=== PATIENT | female | born 1990 | race Caucasian/White ===

== ENCOUNTER 2016-10-24 04:39 | Emergency (ER) | payer OTHER ==
[2016-10-24 05:12] VITALS: TEMP 98.3; BMI 23.0
[2016-10-24] MEDS ORDERED: morphine CARPU-JECT 4 MG/1 ML DISP.SYRIN IVPUSH ONE (05:25)
[2016-10-24] MEDS ORDERED: SODIUM CHLORIDE 1,000 ML IV STA (05:25)
[2016-10-24] MEDS ORDERED: ONDANSETRON 4 MG/2 ML VIAL IVPB ONE (05:25)
--- NOTE | 2016-10-24 05:29 | PDOC ---
[id number] ABDOMINAL PAIN Time Seen by Provider: 10/24/16 04:51 History Source: Patient Exam Limitations: No Limitations - History of Present Illness Travel History: No Initial Comments: 10/24/16 05:28 25yo Female patient presents to ED c/o abdominal pain. Patient reports 1 week ago Wednesday experiencing abd cramping with burning on urination. Patient states she used over OTC AZO with relief from symptoms, she then went on vacation w/ no symptoms. [facility] and given Diflucan. She states symptoms returned and she took an old prescription of Amox. Patient now c/o RLQ, pelvic pain, bloating, nausea , diarrhea, back pain, fatigued, burping, frequency, urgency with 9/10 pain severity. Denies any other complaints at this time. Timing/Duration: reports: constant, getting worse Quality: reports: severe, sharpness Abdominal Pain Onset Location: reports: RLQ, other (Pelvic) Pain Radiation: reports: back Activities at Onset: reports: none Treatment Prior to Arrive: worse with: analgesics, antacids, cold pack, heat, laxative, enema, other Aggravating Factors: worse with: None, Defecation, Eating, Emotional upset, Exertion, [place], Movement, Voiding, Change in position Alleviating Factors: worse with: None, Belching, Shallow Breathing, Defecation, Eating, Holding Breath, Passing Gas, Change in Position, Rest, Voiding, Vomiting Past History - Travel Traveled outside of the country in the last 30 days: No Close contact w/someone who was outside of country & ill: No - Past Medical History Allergies/Adverse Reactions: Allergies Allergy/AdvReac Type Severity Reaction Status Date / Time No Known Allergies Allergy Verified 10/24/16 05:12 Home Medications: Ambulatory Orders Naproxen [Naprosyn -] 500 mg PO BID PRN #14 tablet 04/14/14 Sertraline HCl [Zoloft -] 25 mg PO DAILY 04/14/14 Ibuprofen [Motrin -] 800 mg PO Q6H #30 tablet 10/24/16 Nitrofurantoin Monohyd/M-Cryst [Macrobid -] 100 mg PO BID #14 capsule 10/24/16 - Reproductive History (#): 0 Para: 0 - Immunization History Immunization Up to Date: Yes - Psycho/Social/Smoking Cessation Hx Anxiety: Yes Suicidal Ideation: No Smoking Status: Yes Smoking History: Never smoked Have you smoked in the past 12 months: No Number of Cigarettes Smoked Daily: 1 Hx Alcohol Use: No Drug/Substance Use Hx: No Abd/GI Specific PMHX - Complaint Specific PMHX Colitis: No Diverticulitis: No Gall Bladder Disease: No GERD: No Hepatitis: No Irritable Bowel Synd (IBS): No Pancreatitis: No GI Ulcer Disease: No Review of Systems - Review of Systems Able to Perform ROS?: Yes Is the patient limited Mauritian proficient: No Constitutional: No: Chills, Fever HEENTM: No: Blurred Vision, Double Vision Respiratory: No: Cough, Shortness of Breath, Stridor, Wheezing Cardiac (ROS): No: Chest Pain, Edema, Palpitations, Syncope, Chest Tightness ABD/GI: Yes: Diarrhea, Nausea, Other (Pelvic Pain). No: Constipated, Poor Appetite, Poor Fluid Intake, Vomiting : Yes: Burning, Dysuria, Frequency, Hematuria, Pain, Urgency. No: Discharge, Flank Pain Musculoskeletal: Yes: Back Pain. No: Muscle Pain, Muscle Weakness, Neck Pain Integumentary: No: Dryness, Erythema, Rash Neurological: No: Headache, Seizure, Dizziness Psychiatric: No: Anxiety, Depression All Other Systems: Reviewed and Negative *Physical Exam - Vital Signs Last Vital Signs Temp Pulse Resp BP Pulse Ox 98.3 F 79 18 110/83 100 10/24/16 05:10 10/24/16 05:10 10/24/16 05:10 10/24/16 05:10/24/16 05:10 - Physical Exam General Appearance: Yes: Nourished, Appropriately Dressed, Moderate Distress. No: Apparent Distress, Mild Distress, Severe Distress HEENT: positive: EOMI, JOLIE, Normal ENT Inspection, Normal Voice, Symmetrical, TMs Normal, Pharynx Normal. negative: Pharyngeal Erythema, Nasal Congestion, Rhinorrhea, TM Bulging, TM Dull, TM Erythema Neck: positive: Trachea midline, Normal Thyroid, Supple. negative: Tender, Rigid, Decreased range of motion, Lymphadenopathy (R), Lymphadenopathy (L) Respiratory/Chest: positive: Lungs Clear, Normal Breath Sounds. negative: Respiratory Distress, Accessory Muscle Use, Labored Respiration, Decreased Breath Sounds, Rhonchi, Stridor, Wheezing, Hyperresonant Cardiovascular: positive: Regular Rhythm, Regular Rate. negative: Edema, JVD Gastrointestinal/Abdominal: positive: Tender, Flat, Soft, Increased Bowel Sounds. negative: Distended, Guarding, Rebound, Tenderness, Hernia Lymphatic: negative: Adenopathy Musculoskeletal: positive: Normal Inspection. negative: CVA Tenderness Extremity: positive: Normal Capillary Refill, Normal Inspection, Normal Range of Motion, Pelvis Stable. negative: Cyanosis, Erythema Integumentary: positive: Normal Color, Dry, Warm ED Treatment Course - LABORATORY CBC & Chemistry Diagram: 10/24/16 05:45 10/24/16 05:45 - RADIOLOGY Radiology Studies Ordered: Category Date Time Status ABDOMEN FLAT & UPRIGHT [RAD] Stat Radiology 10/24/16 05:23 Ordered *DC/Admit/Observation/Transfer Diagnosis at time of Disposition: Pelvic pain, Dysuria - Discharge Dispostion Disposition: HOME Condition at time of disposition: Improved Admit: No - Prescriptions Prescriptions: Nitrofurantoin Monohyd/M-Cryst [Macrobid -] 100 mg PO BID #14 capsule Ibuprofen [Motrin -] 800 mg PO Q6H #30 tablet - Referrals Referrals: Dottie Roland [Primary Care Provider] - - Patient Instructions Printed Discharge Instructions: Urinary Tract Infection Additional Instructions: Take medications as directed and if symptoms persist, please follow up with your PMD Print Language: AZERI
[2016-10-24] MEDS ORDERED: ONDANSETRON 4 MG/2 ML VIAL ONE (05:31)
[2016-10-24] MEDS ORDERED: morphine CARPU-JECT 4 MG/1 ML DISP.SYRIN ONE (05:31)
[2016-10-24 05:56] LABS: URINE APPEARANCE SLCLOUDY; URINE BILIRUBIN NEGATIVE (NEGATIVE); URINE BLOOD NEGATIVE (NEGATIVE); URINE COLOR YELLOW; URINE GLUCOSE (UA) NEGATIVE (NEGATIVE); URINE KETONE 1+ (NEGATIVE); URINE LEUK ESTERASE NEGATIVE (NEGATIVE); URINE NITRITE NEGATIVE (NEGATIVE); URINE PROTEIN NEGATIVE (NEGATIVE); URINE UROBILINOGEN NEGATIVE E.U./dl (0.2-1.0)
[2016-10-24 06:32] LABS: MCH 31.3 pg (25.7-33.7); MCHC 34.2 g/dl (32.0-36.0); MEAN CELL VOLUME 91.3 fl (80-96); MEAN PLT VOLUME 8.1 fl (7.5-11.1); PLATELET COUNT 302 K/MM3 (134-434); WHITE BLOOD COUNT 9.5 K/mm3 (4.0-10.0)
--- NOTE | 2016-10-24 07:19 | PDOC ---
History of Present Illness - General Chief Complaint: Pain Stated Complaint: ABDOMINAL PAIN Time Seen by Provider: 10/24/16 04:51 History Source: Patient - History of Present Illness Timing/Duration: reports: constant Abdominal Pain Onset Location: reports: other (lower abd) Past History - Past Medical History Allergies/Adverse Reactions: Allergies Allergy/AdvReac Type Severity Reaction Status Date / Time No Known Allergies Allergy Verified 10/24/16 05:12 Home Medications: Ambulatory Orders Naproxen [Naprosyn -] 500 mg PO BID PRN #14 tablet 04/14/14 Sertraline HCl [Zoloft -] 25 mg PO DAILY 04/14/14 Ibuprofen [Motrin -] 800 mg PO Q6H #30 tablet 10/24/16 Nitrofurantoin Monohyd/M-Cryst [Macrobid -] 100 mg PO BID #14 capsule 10/24/16 - Reproductive History (#): 0 Para: 0 - Immunization History Immunization Up to Date: Yes - Psycho/Social/Smoking Cessation Hx Anxiety: Yes Suicidal Ideation: No Smoking Status: Yes Smoking History: Never smoked Have you smoked in the past 12 months: No Number of Cigarettes Smoked Daily: 1 Hx Alcohol Use: No Drug/Substance Use Hx: No Abd/GI Specific PMHX - Complaint Specific PMHX Colitis: No Diverticulitis: No Gall Bladder Disease: No GERD: No Hepatitis: No Irritable Bowel Synd (IBS): No Pancreatitis: No GI Ulcer Disease: No Review of Systems - Review of Systems Is the patient limited Bruneian proficient: No *Physical Exam - Vital Signs Last Vital Signs Temp Pulse Resp BP Pulse Ox 98.3 F 79 18 110/83 100 10/24/16 05:10 10/24/16 05:10 10/24/16 05:10 10/24/16 05:10 10/24/16 05:10 - Physical Exam General Appearance: Yes: Appropriately Dressed. No: Apparent Distress HEENT: positive: Normal Voice Neck: positive: Supple Respiratory/Chest: negative: Respiratory Distress Female Pelvic Exam: positive: normal external exam, normal adnexa. negative: CMT, discharge, lesions, vaginal bleeding Gastrointestinal/Abdominal: positive: Soft, Other (poorly localized tenderness ) Musculoskeletal: negative: CVA Tenderness Integumentary: positive: Dry, Warm Neurologic: positive: Fully Oriented, Alert, Normal Mood/Affect ED Treatment Course - LABORATORY CBC & Chemistry Diagram: 10/24/16 05:45 10/24/16 05:45 - ADDITIONAL ORDERS Additional order review: Laboratory Results 10/24/16 10/24/16 10/24/16 05:45 05:45 05:15 Sodium Cancelled Potassium Cancelled Chloride Cancelled Carbon Dioxide Cancelled Anion Gap Cancelled BUN Cancelled Creatinine Cancelled Creat Clearance w eGFR Cancelled Random Glucose Cancelled Calcium Cancelled Total Bilirubin Cancelled AST Cancelled ALT Cancelled Alkaline Phosphatase Cancelled Total Protein Cancelled Albumin Cancelled Total Amylase Cancelled Lipase Cancelled Serum , Qual Cancelled Urine Color Yellow Urine Appearance Slcloudy Urine pH 5.0 D Ur Specific Mitchell 1.027 Urine Protein Negative Urine Glucose (UA) Negative Urine Ketones 1+ H Urine Blood Negative Urine Nitrite Negative Urine Bilirubin Negative Urine Urobilinogen Negative Ur Leukocyte Esterase Negative Urine HCG, Qual Negative 10/24/16 05:45 RBC 4.16 MCV 91.3 MCHC 34.2 RDW 13.0 MPV 8.1 Neutrophils % 56.0 Lymphocytes % 36.2 Monocytes % 5.8 Eosinophils % 1.0 Basophils % 1.0 - Medications Given in the ED: ED Medications Discontinued Medications Generic Name Dose Route Start Last Admin Trade Name Freq PRN Reason Stop Dose Admin Sodium Chloride 1,000 mls @ 1,000 mls/hr 10/24/16 05:25 10/24/16 05:52 Normal Saline - IV 10/24/16 06:24 1,000 mls/hr ASDIR STA Administration Morphine Sulfate 4 mg 10/24/16 05:25 10/24/16 05:52 Morphine Injection - IVPUSH 10/24/16 05:26 4 mg ONCE ONE Administration Ondansetron HCl 4 mg 10/24/16 05:25 10/24/16 05:52 Zofran Injection IVPB 10/24/16 05:26 4 mg ONCE ONE Administration Medical Decision Making - Medical Decision Making 10/24/16 07:17 25-year-old female, no significant history, presenting with lower abdominal pain with burning on urination. Patient states she took Azo [id number] with some relief but at some point symptoms worsen and was [facility] at [facility] and diagnosed with yeast infection and given Diflucan. Patient states Diflucan made symptoms worse and ended up taking some amoxicillin that she had leftover at home but states symptoms persist. exam, plan 10/24/16 08:05 Patient status post ultrasound, report pending. On reassessment, patient complaining of mostly periumbilical pain 1 week, now mostly localizing to right lower quadrant. Has been constant and sharp in nature with some dysuria. No hematuria, flank pain, nausea, vomiting, fever or chills. Did have Chlamydia in the past that was treated as per patient. Also has history of an ovarian cyst. Patient has never had this pain before. Patient appears comfortable at this point and remain stable with poorly localized tenderness on abd exam and unremarkable pelvic. Pt requesting pain control. If US normal, will consider CT r/o appy though unlikely given duration of sxs. Ua neg but given that pt took several doses of amoxicillin, may be false neg. If w/u neg in ED, may consider course of abx. STD cxs pending. No e/o PID at this time 10/24/16 10:13 US neg for acute pathology and no cyst. CT performed without IV contrast as pt refused, and shows partial view of appendix w/ no gross ab/nl. Pt refusing to give more urine for ucx and gc/chlam collection despite being aware of how important it is to have sensitivity report regarding urine. Will dc at this time w/ macrobid for possible uti. Reasons to return d/w pt. Pt discharged in stable conditions *DC/Admit/Observation/Transfer Diagnosis at time of Disposition: Pelvic pain, Dysuria - Discharge Dispostion Disposition: HOME Condition at time of disposition: Improved - Prescriptions Prescriptions: Nitrofurantoin Monohyd/M-Cryst [Macrobid -] 100 mg PO BID #14 capsule Ibuprofen [Motrin -] 800 mg PO Q6H #30 tablet - Referrals Referrals: Dottie Roland [Primary Care Provider] - - Patient Instructions Printed Discharge Instructions: Urinary Tract Infection Additional Instructions: Take medications as directed and if symptoms persist, please follow up with your PMD
[2016-10-24 07:21] LABS: ALBUMIN 4.1 g/dl (3.4-5.0); ALK PHOS 55 U/L (45-117); AMYLASE 66 U/L (25-115); ANION GAP 14 (8-16); BILIRUBIN,TOTAL 0.5 mg/dL (0.2-1.0); CO2 21 mmol/L (21-32); CREATININE 0.7 mg/dL (0.55-1.02); GLUCOSE,RANDOM 80 mg/dL (74-106); SGOT/AST 9 U/L (15-37); SGPT/ALT 13 U/L (12-78); TOT PROT 7.8 g/dl (6.4-8.2)
[2016-10-24] MEDS ORDERED: KETOROLAC TROMETHAMINE 30 MG/1 ML VIAL IVPUSH ONE (08:42)
[2016-10-24] MEDS ORDERED: KETOROLAC TROMETHAMINE 30 MG/1 ML VIAL ONE (08:56)
[2016-10-24 10:34] VITALS: BP 112/70; PULSE 70
[2016-10-24 13:53] LABS: URINE MARIJUANA THC POSITIVE ng/ml (CUTOFF=50)
== END 2016-10-24 10:34 | disposition home or self-care (01) ==
LOC: JER 04:39
PROC: 3E033NZ Introduction of Analgesics, Hypnotics, Sedatives into Peripheral Vein, Percutaneous Approach (ICD-10-PCS; principal; 2016-10-24)
PROC: 3E033GC Introduction of Other Therapeutic Substance into Peripheral Vein, Percutaneous Approach (ICD-10-PCS; 2016-10-24)
PROC: 3E0333Z Introduction of Anti-inflammatory into Peripheral Vein, Percutaneous Approach (ICD-10-PCS; 2016-10-24)
DX: R10.2 Pelvic and perineal pain (principal); R30.0 Dysuria
CPT/HCPCS: 36415; 74176-TC; 76830-TC; 76856-TC; 80053; 80307; 81003; 82150; 83690; 84703; 85025; 96374; 96375; 99283-25

== ENCOUNTER 2018-01-05 23:12 | Emergency (ER) | payer OTHER ==
[2018-01-05 23:26] VITALS: BP 126/75; PULSE 57; TEMP 97.6; BMI 23.9
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
== END 2018-01-06 01:43 | disposition home or self-care (01) ==
LOC: JER 23:12
DX: M54.2 Cervicalgia (principal); R51 Headache; M25.511 Pain in right shoulder; V43.51XA Car driver injured in collision with sport utility vehicle in traffic accident, initial encounter; Y92.488 Other paved roadways as the place of occurrence of the external cause; Y93.89 Activity, other specified; Y99.8 Other external cause status
CPT/HCPCS: 70450-TC; 72125-TC; 84703; 99283-25

== ENCOUNTER 2021-06-22 11:59 | Emergency (ER) | payer OTHER ==
[2021-06-22 12:14] VITALS: BP 112/77; PULSE 90; TEMP 98; BMI 24.4
[2021-06-22 12:45] LABS: EPI CELLS 25 /uL (0-25.1); HCG,QUALITATIVE URINE Negative; HYALINE CASTS 3 /uL (0-3.1); PH,URINE 7.5 (5.0-8.0); URINE APPEARANCE CLEAR; URINE BACTERIA 677 /uL (0-1359); URINE BILIRUBIN NEGATIVE (NEGATIVE); URINE COLOR YELLOW; URINE GLUCOSE (UA) NEGATIVE (NEGATIVE); URINE KETONE NEGATIVE (NEGATIVE); URINE LEUK ESTERASE 1+ (NEGATIVE); URINE NITRITE NEGATIVE (NEGATIVE); URINE PROTEIN NEGATIVE (NEGATIVE); URINE RBC 1 /uL (0-23.9); URINE WBC 89 /uL (0-25.8)
== END 2021-06-22 12:55 | disposition home or self-care (01) ==
LOC: JER 11:59
DX: R30.0 Dysuria (principal)
CPT/HCPCS: 81003; 84703; 87086; 99283-25